=== PATIENT | female | born 1945 | race Caucasian/White ===

== ENCOUNTER 2016-09-18 10:15 | Outpatient (CLI) | payer MEDICARE, MEDICAID ==
[~2016-09-18] VITALS: Ht 154.9 cm; Wt 56.2 kg
[~2016-09-18 10:15] MED LIST: ALIVE WOMEN S PO; AMITRIPTYLINE 225 MG PO; BACTRIM DS 8001 TA1 PO; E-GEMS100 IU PO; GABAPENTIN300 MG PO; LEVOTHYROXIN0.125 M1 PO; LORAZEPAM0.5 MG/TAB PO; LYRICA50 MG PO; MEGACE LIQUI40 MG/ML PO; MOBIC7.5 MG PO; Mobic7.5 MG PO; OMEPRAZOLE D/R20 MG PO; ONDANSETRON HYDR8 MG PO; OXYCODONE HCL15 MG PO; PERCOCET 10 MG1 EACH PO; REMERON15 MG PO; ROPINIROLE 0.0.25 MG PO; SUNMARK OMEPRAZ20 MG PO; SYNTHROID0.112 MG PO; TRAMADOL 50MG T50 M1 PO; VITAMIN B-1100 MG PO; VITAMIN C500 M1 PO; VITAMIN D1000 IU PO
[2016-09-18 10:40] LABS: HEMOGLOBIN 13.4 g/dL (12.2-16.2); LYMPH # 2.3 K/mm3 (0.7-4.5); LYMPH % 13.8 % (10-50.0)
[2016-09-18 10:50] LABS: BUN 10 mg/dL (7-18); GFR (ESTIMATED) 122 ML/MIN (59-)
[2016-09-18 11:01] LABS: NEUTROPHILS 78 % (42-76)
[2016-09-18 11:55] VITALS: BP 100/59
[2016-09-18 12:10] VITALS: BP 95/63
[2016-09-18 12:25] VITALS: BP 102/63
[2016-09-18 12:40] VITALS: BP 103/65
--- NOTE | 2016-09-20 13:59 | RADIOLOGY REPORT PS360 ---
CT CHEST W/ CONTRAST ORDERING PHYSICIAN : CHARLY BELL PATIENT AGE: 71 years GENDER: Female INDICATION: NONSMALL CELL LUNG CANCER. Lung cancer with history of left upper lung surgery non-small cell cancer. On chemotherapy. TECHNIQUE: Helical CT scanning performed the chest following 75 cc [id number]. Sagittal & coronal reconstruction CT workstation COMPARISON: Most recent Prior CT chest with contrast 05/11/2016 but also utilized January 08, 2016 CT chest FINDINGS : LEFT LUNG. : The the overall volume of density density of the left upper lobe collapse and associated central mass to decreased slightly compared to be within the ovary today's sagittal image set versus May 2016 Endobronchial obstruction again noted,, soft tissue density again seen filling bronchus leading to left upper lobe as well as associated lingular bronchus, with near complete collapse GALEN. Difficult to discern the mass lesion versus collapsed lung in this setting. However I suspect that the hypoechoic dense less enhancing mass has decreased in size since previous study May 2016 CT., And also now demonstrate some areas of partial aeration or cavitation within the what I believe is the treated regressing mass. On again reviewing prior CT chest I believe the hypodense and less underlying central mass measuring measured up to 5.3cm wide x 4 cm AP on that May 2016 study;..., however today it measures 4.4 wide x 2.5 cm AP. Again difficult to discern mass from the collapsed lung.. But I believe the mass extends to the base of left rose. There is some notable infiltrate surrounding a left lower lobe bronchus, axial image 30 and 31 which is developed and progressed since prior study. Question pneumonic infiltrate versus extension of disease. Versus post radiation changes possibly. RIGHT LUNG: Prominent underlying centr lobar emphysematous changes and COPD. Extensive bleb formation Most evident throughout right upper lobe. It. No significant nodules or masses additionally seen at right lung. MEDIASTINUM: There is a hazy appearance of the fat of the mediastinum which makes delineation nodes difficult. The left upper lobe collapse obscures the AP window region. I see no enlarged nodes in this area although limited due to the anatomy. Would note would seem to be slight enlargement of a node in the left subcarinal region, difficult to discern from esophagus density but on coronal image it appears to measure 2 cm wide x 13 mm height. This will require follow-up. Axial image 31, 32 and coronal image 32.. Warrant close ongoing follow-up The great vessels appear satisfactory. Heart normal size no pericardial effusion. UPPER ABDOMEN: , left adrenal nodule again noted and stable measuring 12 x 19 mm. The right adrenal unremarkable. OSSEOUS STRUCTURES, slight change at T4. Increased density throughout suspect. Possible post radiation changes versus Possible early metastatic lesion versus posttraumatic change.. Slight superior endplate concavity raise the possibility of a mild mild superior endplate compression. This will warrant follow-up. Consider MRI T-spine with and without contrast if pain in this region. ------IMPRESSION 1. L UL collapse again seen. -Due to soft tissue lesion//neoplasm completely obstructing the left upper lobe bronchus 2. . It is difficult to delineate the central mass from the collapsed lung but I believe there has been regression of the central neoplasm. When compared to May 2016, Today's study suggestion of slight regression of central mass, including some early cavitation or partial aeration in the region of this mass itself. 3. There is progression/new infiltrate,-just posterior to this left hilar mass, extending along this left lower lobe bronchus. Post radiation change, vs possible pneumonic infiltrate? 4. Slight enlargement of a left subcarinal lymph node suggested as well. Otherwise mediastinum unchanged 5. Slight increased density throughout T4 vertebral body. With mild superior endplate concavity. Question mild posttraumatic changes versus early pathology ( vs possible post radiation changes?). \6. Severe emphysematous changes again noted at remaining lung. 7. Stable left adrenal nodule but nonspecific
== END 2016-09-18 12:50 | disposition home or self-care (01) ==
LOC: COP 10:15 → RAD 13:00 → COP 13:00
PROVIDERS: Internal Medicine
DX: C34.12 Malignant neoplasm of upper lobe, left bronchus or lung (principal)
CPT/HCPCS: J9271; Q9967